=== PATIENT | female | born 1930 | race Caucasian/White ===

== ENCOUNTER 2017-06-22 10:28 | Emergency (ER) | payer MEDICARE ==
[~2017-06-22] VITALS: Ht 160 cm; Wt 69.6 kg
[2017-06-22 10:33] VITALS: BP 141/68; PULSE 81; RESP 18; TEMP 97.2; O2SAT 97
[2017-06-22] MEDS ORDERED: BP MED (10:43)
[2017-06-22] MEDS ORDERED: CEPH-460 PO (10:53)
[2017-06-22] MEDS ORDERED: PRED20 PO (10:53)
[2017-06-22] MEDS ORDERED: INDO25CA PO (10:53)
--- NOTE | 2017-06-22 11:17 | PD ---
HPI Chief Complaint: Edema Time Seen by Provider: 10:39 Travel History International Travel<30 days: No Contact w/Intl Traveler<30days: No Traveled to known affect area: No History of Present Illness HPI 86-year-old female that presents to the ED for evaluation of right foot pain. Per patient she's had right foot pain and swelling on the first MIP of the right first digit for about 2 weeks now. Patient was seen at an urgent care last week and was started on Medrol Dosepak. Per patient the symptoms do not improve and she has also developed some erythema around the area which made her concerned. She came here to get evaluated. 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 She has not seen her doctor as she is from out of town. She is here for a couple more weeks. Per patient the pain is 5 out of 10 and gets worse with weightbearing. Denies any fevers chills or sweats. No history of diabetes. No history of trauma. Per patient no x-ray was ordered or done at the urgent care. Patient denies any other injuries or pain. No other medical issues at this time. Has no allergies to medication. Denies any numbness, tingling, weakness to the foot. No other complaints. PFSH Past Medical History Diminished Hearing: Yes Hypertension: Yes Tetanus Vaccination: < 5 Years ?: Not Past Surgical History Appendectomy: Yes Cholecystectomy: Yes Tonsillectomy: Yes Other Surgery: Yes (BILAT. KNEE REPLACEMENTS) Social History Alcohol Use: Yes (RARE) Tobacco Use: No Substance Use: No Allergies-Medications (Allergen,Severity, Reaction): Coded Allergies: No Known Allergies (Verified Allergy, Unknown, 06/22/17) Reported Meds & Prescriptions Reported Meds & Active Scripts Active Keflex (Cephalexin) 500 Mg Cap 500 Mg PO Q8H 10 Days Prednisone 20 Mg Tab 20 Mg PO BID 5 Days Indomethacin 25 Mg Cap 25 Mg PO BID PRN Take with food, milk, or antacids to decrease stomach adverse effects. Reported [Bp Med] Review of Systems Except as stated in HPI: all other systems reviewed are Neg Physical Exam Narrative GENERAL: SKIN: Warm and dry. HEAD: Atraumatic. Normocephalic. EYES: Pupils equal and round. No scleral icterus. No injection or drainage. ENT: No nasal bleeding or discharge. Mucous membranes pink and moist. NECK: Trachea midline. No JVD. CARDIOVASCULAR: Regular rate and rhythm. RESPIRATORY: No accessory muscle use. Clear to auscultation. Breath sounds equal bilaterally. GASTROINTESTINAL: Abdomen soft, non-tender, nondistended. Hepatic and splenic margins not palpable. MUSCULOSKELETAL: Extremities without clubbing, cyanosis, or edema. No obvious deformities. Patient has full range of motion of the right foot. Patient does have tenderness to palpation on the MIP area of the right foot. Patient does have some erythema which is blanchable as well as warm to touch. Good capillary refill in all toes. Sensation intact bilaterally. 2+ pulses bilaterally. No obvious abscess or deformity noted. NEUROLOGICAL: Awake and alert. No obvious cranial nerve deficits. Motor grossly within normal limits. Five out of 5 muscle strength in the arms and legs. Normal speech. PSYCHIATRIC: Appropriate mood and affect; insight and judgment normal. Data Data Last Documented VS Vital Signs Date Time Temp Pulse Resp B/P (MAP) Pulse Ox O2 Delivery O2 Flow Rate FiO2 06/22/17 10:33 97.2 81 18 141/68 (92) 97 Orders Orders Foot, Complete ([id number]) (06/22/17 ) [facility] Medical Decision Making Medical Screen Exam Complete: Yes Emergency Medical Condition: Yes Medical Record Reviewed: Yes Interpretation(s) X-ray of the right foot show no sign of acute bony abnormality or injury Differential Diagnosis Pseudogout versus gout versus cellulitis versus fracture Narrative Course 86-year-old female that presents to the ED for evaluation of right foot pain and swelling with no injury. Patient was properly examined and was found to have signs and symptoms which appear to be very consistent with likely pseudogout versus gout. No history of it in the past but this is her first case of it on her right MIP area. Patient was given the low dose of Medrol Dosepak before and has been taking Tylenol. I suspect that this is not enough to help her symptoms. There is some concern for cellulitis and I believe This to Be Less Likely As Patient Has No History of Injury or Diabetes. I discussed this with my attending for agrees with plan. This time patient will be treated with prednisone, indomethacin and Keflex to cover for bacterial infection. Recommend warm compresses. Close follow-up with PCP when she gets home to get checked for gout. Follow with PCP. See ED worsening symptoms. I did Counseled the patient that in 2 days the symptoms worsen or do not improve told to get rechecked here in the ED to get evaluated. Diagnosis Primary Impression: Pseudogout of foot Qualified Codes: M11.271 - Other chondrocalcinosis, right ankle and foot Patient Instructions: General Instructions Additional Instructions: Take medications as prescribed. Follow-up with PCP. See ED for any worsening symptoms. Recheck in 48 hours if no improvement of the redness worsens. Apply ice or heat as needed for pain Med/Other Pt SpecificInfo: Prescription(s) given Scripts Cephalexin (Keflex) 500 Mg Cap 500 MG PO Q8H for Infection for 10 Days, #30 CAP 0 Refills Prov: Elise Villagran MD 06/22/17 Prednisone (Prednisone) 20 Mg Tab 20 MG PO BID for 5 Days, #10 TAB 0 Refills Prov: Elise Villagran MD 06/22/17 Indomethacin (Indomethacin) 25 Mg Cap 25 MG PO BID Y for PAIN SCALE 1 TO 10, #20 CAP 0 Refills Take with food, milk, or antacids to decrease stomach adverse effects. Prov: Elise Villagran MD 06/22/17 Disposition: 01 DISCHARGE HOME Condition: Stable Gabriel Fried Jun 22, 2017 11:16
--- NOTE | 2017-06-22 11:27 | RADRPT ---
EXAM DATE/TIME: 06/22/2017 10:57 [facility] COMPARISON: No previous studies available for comparison. INDICATIONS : Right 1st digit pain, redness and swelling, no known injury. MEDICAL HISTORY : None. SURGICAL HISTORY : None. ENCOUNTER: Initial ACUITY: 2 days PAIN SCORE: 4/10 LOCATION: Right 1st digit FINDINGS: AP, lateral and oblique views of the right foot were obtained and demonstrate soft tissue swelling ov er the medial first digit with no radiopaque foreign body. There is no destructive change or perioste al new bone formation. There is mild osteopenia and normal alignment. Mild osteophytic changes are no alessandra greatest in the metatarsal tarsal joints. There are mild vascular calcifications. CONCLUSION: Soft tissue swelling with no evidence of osteomyelitis. Hudson Roland MD on June 22, 2017 at 11:24 Board Certified Radiologist. This report was verified electronically.
== END 2017-06-22 11:53 | disposition home or self-care (01) ==
LOC: PHEFT 10:28
DX: M11.271 Other chondrocalcinosis, right ankle and foot (principal); I10 Essential (primary) hypertension
CPT/HCPCS: 73630; 99283